=== PATIENT | female | born 1945 | race Caucasian/White ===

== ENCOUNTER → 2018-06-02 13:34 | Outpatient (CLI) | payer OTHER, MEDICARE, SELFPAY ==
--- NOTE | 2018-06-02 | DI.ECHO.S_ITS ---
[place] [facility]---------+ [facility] +---------+ : : [address] : : : : [place], [place] : : : : [id number] : : : : Phone: [phone]+ Echocardiogram Report + + :Name: RAY OLIVARES Study Date: 06/02/2018 Height: 65 in : :[facility] Weight: 178 lb : : Gender: Female BSA: 1.9 m2 : :: 1945 Age: 72 yrs BP: 122/58 mmHg: :Reason For Study: Arrhythmia, SVT : : Performed By: Malika Valdovinos : :Referring: AYESHA ALEXANDRA : + + Interpretation Summary 1) Normal left ventricular thickness, size, wall motion, and systolic function (EF 65-70%). 2) Normal right ventricular size and function. 3) No significant valvular abnormalities. 4) No prior Echo available for comparison. Procedure: A two-dimensional transthoracic echocardiogram with color flow and Doppler was performed. The study quality was technically adequate. There is no prior echocardiogram noted for this patient. The patient was in normal sinus rhythm during the exam. Left Ventricle: The left ventricle is normal in size, wall thickness, and systolic function without any focal wall motion abnormalities. The ejection fraction is estimated to be 65-70%. Assessment of diastolic parameters indicates a relaxation abnormality of the left ventricle, consistent with normal filling pressures. Right Ventricle: The right ventricle grossly appears normal in size with probable normal systolic function. Atria: The left atrium is moderately dilated. Right atrial size is normal. The interatrial septum is intact with no evidence for an atrial septal defect. Mitral Valve: The mitral valve leaflets appear mildly thickened, but open well. There is trace mitral regurgitation. Aortic Valve: The aortic valve opens well. The aortic valve is trileaflet. There is no aortic valve stenosis. No aortic regurgitation is present. Tricuspid Valve: The tricuspid valve is normal in structure and function. There is trace tricuspid regurgitation. The right ventricular systolic pressure is estimated at 32 mmHg assuming a right atrial pressure of 3 mm Hg. Pulmonic Valve: The pulmonic valve is not well visualized. Great Vessels: The aortic root is normal size. The ascending aorta is normal in size. The IVC is of normal diameter and collapses greater than 50% with a sniff. This suggests a low right atrial pressure of 3 mm Hg. Pericardium/ Pleura There is no pericardial effusion. There is no pleural effusion. MMode/2D Measurements & Calculations LVIDd: 4.6 cm Ao root diam: 3.5 cm LVIDs: 2.6 cm Aortic Jxn: 2.8 cm FS: 44.2 % asc Aorta Diam: 3.2 cm EPSS: 0.69 cm Ao Arch Diam (Prox Trans): 3.0 cm IVSd: 1.2 cm LVPWd: 0.88 cm LV flores. diameter/BSA (cm/m^2): 2.4 LV sys. diameter/BSA (cm/m^2): 1.4 LA dimension: 3.9 cm RA long axis: 3.8 cm LA A2 area: 21.4 cm2 RA area: 9.7 cm2 LA A4 area: 20.8 cm2 RA vol: 21.2 ml LA length (vol): 5.6 cm RA : 11.2 ml/m2 LA vol: 67.8 ml IVC diam: 1.4 cm LA vol index: 36.0 ml/m2 RVDd major: 5.0 cm RVD1 (basal): 3.3 cm RVD2 (mid): 3.0 cm Doppler Measurements & Calculations Ao V2 max: 126.7 cm/sec MV E max uli: 67.0 cm/sec Ao V2 mean: 98.6 cm/sec MV A max uli: 54.3 cm/sec Ao max P.4 mmHg MV E/A: 1.2 Ao mean P.1 mmHg Med Peak E' Uli: 6.5 cm/sec Ao V2 VTI: 31.2 cm E/E' med: 10.3 Lat Peak E' Uli: 8.9 cm/sec E/E' lat: 7.5 E/e' average: 8.9 MV dec time: 0.25 sec MV P1/2t: 74.6 msec TR max uli: 269.8 cm/sec MV P1/2t max uli: 67.4 cm/sec TR max P.1 mmHg MVA(P1/2t): 2.9 cm2 PA V2 max: 93.0 cm/sec PA V2 mean: 56.6 cm/sec PA mean P.5 mmHg PA Accel Time: 0.12 sec Reading Physician:04:05 PM
== END ==
PROVIDERS: Visit Provider Internal Medicine Cardiovascular Disease
DX: I47.1 Supraventricular tachycardia (principal)
CPT/HCPCS: 93306

== ENCOUNTER → 2019-10-16 13:32 | Outpatient (CLI) | payer OTHER, MEDICARE, SELFPAY ==
--- NOTE | 2019-10-16 | DI.MRI.S_ITS ---
PROCEDURE: MR KNEE RT WO CON INDICATIONS: Unspecified internal derangement of right knee TECHNIQUE: Noncontrast sagittal PD fast spin echo and T2 fast spin echo with fat saturation, sagittal 3-D FLASH with fat saturation; coronal T1 spin echo and PD fast spin echo with fat saturation, and axial PD fast spin echo with fat saturation through the knee. COMPARISON: None. FINDINGS: Image quality: Excellent. Menisci: There is a bucket handle type tear involving anterior horn, body and posterior horn of medial meniscus with central displacement of the torn meniscal flap anterior to the posterior cruciate ligament. There is no focal lateral meniscal tear. The meniscal root ligaments appear intact. Cruciate ligaments: Chronic degenerative changes throughout anterior cruciate ligament is seen. No full-thickness ACL rupture. PCL is intact. Medial structures: There is moderate MCL sprain. The posterior oblique ligament, semimembranosus tendon insertions, oblique popliteal ligament, and meniscocapsular junction appear intact. Visualized portions of the pes anserinus tendons appear normal. No abnormal bursal fluid. Lateral structures: The lateral collateral ligament, long and short heads of the biceps femoris tendon appear intact. The popliteus tendon appears normal; the popliteofibular ligament appears intact. The posterosuperior and anteroinferior popliteomeniscal fascicles appear intact. The arcuate and fabellofibular ligaments appear intact, on either side of the lateral inferior geniculate artery. Iliotibial band appears normal. Anterior structures: The quadriceps and patellar tendons appear intact. Patellar alignment is normal. No femoral trochlear dysplasia or ventral trochlear prominence. No edema in the infrapatellar fat pad. Bones and cartilage: There is no fracture or dislocation. Moderate tricompartmental osteoarthritis and chondromalacia most prominent in the medial femoral tibial compartment is seen. Small subchondral cyst formation and edema involving weight-bearing portion of medial femoral condyle and adjacent with any portion of medial tibial plateau is seen, small osteochondral lesions are suspected. Joint space: There is moderate amount of joint fluid, no gross intra-articular loose body.. No Tellez's cyst. Normal appearing synovial plicae are incidentally noted. IMPRESSION: 1. Moderate tricompartmental osteoarthritis and chondromalacia most prominent in medial femoral tibial compartment. Moderate amount of joint fluid, no gross loose body. 2. Bucket-handle type tear involving anterior horn, body and posterior horn of medial meniscus as above. No evidence of focal lateral meniscal tear. 3. 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 PCL is intact. 4. Low to moderate grade MCL sprain. Dictated by: Addi Lopez M.D. on 10/16/2019 at 17:48 Approved by: Addi Lopez M.D. on 10/16/2019 at 17:53
== END ==
PROVIDERS: PCP Family Medicine; Referring Provider Orthopaedic Surgery; Visit Provider Orthopaedic Surgery
DX: S83.211A Bucket-handle tear of medial meniscus, current injury, right knee, initial encounter (principal); S83.411A Sprain of medial collateral ligament of right knee, initial encounter; M17.11 Unilateral primary osteoarthritis, right knee; M94.261 Chondromalacia, right knee
CPT/HCPCS: 73721

== ENCOUNTER → 2021-11-24 12:35 | Outpatient (CLI) | payer OTHER, SELFPAY ==
--- NOTE | 2021-11-24 | DI.RAD.S_ITS ---
PROCEDURE: FL JOINT INJECTION LARGE LT INDICATIONS: PAIN LEFT HIP COMPARISON: None. TECHNIQUE: The indications, alternatives, benefits, risks, and complications of the procedure were explained to the patient. Written informed consent was obtained and placed in the chart. The patient was placed in an appropriate position on the fluoroscopy table, and a site was chosen for percutaneous access under fluoroscopic guidance. The site was prepped and draped in a sterile fashion. Local anesthetic was administered using a 1% lidocaine solution. A hypodermic or spinal needle was then used to access the symptomatic joint. Intra-articular location of the needle tip was confirmed by injecting a small amount of contrast, followed by steroid administration. The needle was then withdrawn, and a bandage applied to the puncture site. FINDINGS: Joint injected: Left Medications injected: For mL of 40 mg/mL Kenalog and 0.5% Ropivacaine mixture. Complications: None. IMPRESSION: Successful fluoroscopically guided administration of steroid and anaesthetic solution into the left hip joint. Dictated by: Marya Gallegos M.D. on 11/24/2021 at 17:12 Approved by: Marya Gallegos M.D. on 11/24/2021 at 17:13
== END ==
PROVIDERS: PCP Family Medicine; Referring Provider Family Medicine; Visit Provider Family Medicine
DX: M12.852 Other specific arthropathies, not elsewhere classified, left hip (principal)
CPT/HCPCS: 20610; 77002

== ENCOUNTER → 2024-08-18 15:49 | Outpatient (CLI) | payer OTHER, MEDICARE, SELFPAY ==
--- NOTE | 2024-08-18 15:54 | DI.MRI.S_ITS ---
PROCEDURE: MR SHOULDER RT WO CON INDICATIONS: impingement syndrome of rt shoulder TECHNIQUE: Noncontrast oblique coronal T2 fast spin echo with fat saturation, oblique sagittal T1 spin echo and T2 fast spin echo with fat saturation, axial T1 spin echo and T2 fast spin echo with fat saturation through the shoulder. COMPARISON: [facility], CR, XR SHOULDER 2+ VIEWS RIGHT, 10/25/2022, 13:37. FINDINGS: Image quality: Excellent. Rotator cuff: High-grade partial articular sided tearing of the posterior supraspinatus tendon and anterior infraspinatus tendon measuring 9 mm in anterior-posterior dimension superimposed on moderate to severe tendinosis. Teres minor tendon is intact. Subscapularis tendon demonstrates moderate tendinosis and low-grade partial articular sided tearing at the superior insertion. There is mild edema within the medial portion of the supraspinatus and infraspinatus muscles. Mild supraspinatus muscle atrophy. Bones and bursae: No acute osseous fracture. Diffuse full-thickness cartilage loss is seen in the glenohumeral joint with moderate subchondral edema, subchondral cystic changes, marginal osteophytes, and mild remodeling of the articular surfaces. Moderate acromioclavicular joint osteoarthrosis. Moderate glenohumeral effusion is seen with mild synovial hypertrophy. There is a large subacromial/subdeltoid bursal effusion. Capsule and soft tissues: Diffuse labral degeneration and chronic degenerative tearing. Severe proximal biceps long head tendinosis and partial intrasubstance tearing. Glenohumeral ligaments are grossly intact. IMPRESSION: 1. Severe glenohumeral osteoarthrosis with diffuse full thickness cartilage loss and moderate subchondral edema. 2. High-grade partial articular sided tearing at the posterior supraspinatus tendon and anterior infraspinatus tendon at the distal insertions measuring 9 mm in anterior-posterior dimension, superimposed on moderate to severe tendinosis. Low-grade strains of the supraspinatus and infraspinatus muscles. 3. Moderate subscapularis tendinosis and low-grade partial articular sided tearing at the superior insertion. 4. Severe proximal biceps long head tendinosis and partial intrasubstance tearing. 5. Moderate acromioclavicular joint osteoarthrosis. 6. Moderate glenohumeral effusion with mild synovial hypertrophy. 7. Large subacromial/subdeltoid bursal effusion. Approved by: Nasim Dorado M.D. on 08/20/2024 at 13:27
== END ==
LOC: MRI 15:54
PROVIDERS: PCP Physician Assistant; Referring Provider Orthopaedic Surgery; Visit Provider Orthopaedic Surgery
DX: M75.111 Incomplete rotator cuff tear or rupture of right shoulder, not specified as traumatic (principal); M75.41 Impingement syndrome of right shoulder; M19.011 Primary osteoarthritis, right shoulder; S46.111A Strain of muscle, fascia and tendon of long head of biceps, right arm, initial encounter; M25.411 Effusion, right shoulder
CPT/HCPCS: 73221